=== PATIENT | male | born 1930 | race Caucasian/White ===

== ENCOUNTER 2018-05-31 10:44 | Observation (INO) ==
[2018-05-31 11:07] LABS: Basophils # 0.1 K/mm3 (0-0.2); Basophils % 1.3 % (0.1-2.0); Eosinophils # 0.2 K/mm3 (0.0-0.4); Eosinophils % 3.5 % (0.1-12.0); Hemoglobin 13.3 g/dL (14.1-18.0); Lymphocytes # 2.5 K/mm3 (0.7-4.5); Lymphocytes % 36.3 K/mm3 (10-50); Mean Corpuscular HGB Conc 32.4 g/dL (31.8-35.4); Mean Corpuscular Hemoglobin 30.7 pg (27.0-31.2); Mean Corpuscular Volume 94.7 fl (80-94); Mean Platelet Volume 9.2 fl (7.4-10.4); Monocytes # 0.5 K/mm3 (0.1-1.0); Monocytes % 6.7 % (1.7-9.3); Neutrophils # 3.6 K/mm3 (1.8-7.8); Neutrophils % 52.2 % (37.0-80.0); Platelet Count 158 K/mm3 (142-424); Red Blood Count 4.33 M/mm3 (4.60-6.20); Red Cell Distribution Width 12.9 % (11.5-17.5)
[2018-05-31 11:20] LABS: Anion Gap 13.2 mEq/L (5-15); Blood Urea Nitrogen 36 mg/dL (7-18); Calcium 9.1 mg/dL (8.5-10.1); Carbon Dioxide 24 mmol/L (21.0-32.0); Chloride 112 mmol/L (98-107); Glucose 137 mg/dL (74-106); Potassium 4.2 mmoL/L (3.5-5.1); Sodium 145 mmol/L (136-145)
--- NOTE | 2018-05-31 11:56 | Emergency Department Note ---
ED Disposition Clinical Impression: Atypical chest pain, Acute renal failure (ARF) Chest pain Qualifiers: Chest pain type: unspecified Qualified Code(s): R07.9 - Chest pain, unspecified Disposition: Admitted as Observation Condition on Discharge: Fair - Critical Care Critical Care Time: No Attestation: On 05/31/18, the high probability of a clinically significant, sudden or life threatening deterioration of the following system(s) required my full and direct attention, intervention and personal management. The time I documented below is in addition to time spent performing reported procedures but includes the following listed in this critical care notation. Medical Decision Making - Medical Records Medical records reviewed: Yes: I reviewed the patient's medical records. - [place] Inquiry Pt receiving controlled substance: No Vital Signs: 05/31/18 10:46 05/31/18 11:10 05/31/18 11:15 Temperature 97.9 F Temperature Source Oral Pulse Rate 104 H Pulse Rate [Left Radial] 104 H 85 Respiratory Rate 15 Blood Pressure [Right Arm] 160/88 144/81 Blood Pressure Mean [Right Arm] 112 102 Blood Pressure Source [Right Arm] Automatic Cuff Automatic Cuff Blood Pressure Position [Right Arm] Sitting Supine 02 Sat by Pulse Oximetry 99 99 Oxygen Delivery Method Room Air Room Air 05/31/18 11:22 05/31/18 11:27 05/31/18 13:06 Temperature Temperature Source Pulse Rate Pulse Rate [Left Radial] 85 87 81 Respiratory Rate Blood Pressure [Right Arm] 140/71 111/47 140/74 Blood Pressure Mean [Right Arm] 94 68 96 Blood Pressure Source [Right Arm] Automatic Cuff Blood Pressure Position [Right Arm] Sitting Supine 02 Sat by Pulse Oximetry 98 Oxygen Delivery Method Room Air 05/31/18 14:14 Temperature Temperature Source Pulse Rate Pulse Rate [Left Radial] 82 Respiratory Rate Blood Pressure [Right Arm] 153/98 Blood Pressure Mean [Right Arm] 116 Blood Pressure Source [Right Arm] Automatic Cuff Blood Pressure Position [Right Arm] Sitting 02 Sat by Pulse Oximetry 95 Oxygen Delivery Method Room Air - Lab Data Lab Results 05/31/18 10:55: WBC 7.0, RBC 4.33 L, Hgb 13.3 L, Hct 41.0 L, MCV 94.7 H, MCH 30.7, MCHC 32.4, RDW 12.9, Plt Count 158, MPV 9.2, Neut % (Auto) 52.2, Lymph % (Auto) 36.3, [place] % (Auto) 6.7, Eos % (Auto) 3.5, Baso % (Auto) 1.3, Neut # (Auto) 3.6, Lymph # (Auto) 2.5, [place] # (Auto) 0.5, Eos # (Auto) 0.2, Baso # (Auto) 0.1 05/31/18 10:55: Sodium 145, Potassium 4.2, Chloride 112 H, Carbon Dioxide 24, Anion Gap 13.2, BUN 36 H, Creatinine 2.20 H, Estimated Creat Clear 30, Estimated GFR 29 L, Est GFR ( Amer) 35 L, Glucose 137 H, Calcium 9.1, Troponin I < 0.02 05/31/18 13:54: Troponin I < 0.02 Result diagrams: 05/31/18 10:55 05/31/18 10:55 Orders (Tests/Meds): ED MEDICATIONS Generic Name Dose Route Start Last Admin Trade Name Freq PRN Reason Stop Dose Admin Sodium Chloride 1,000 mls @ 75 mls/hr 05/31/18 14:30 Sod Chlor 0.9% 1000ml Bag IV 06/30/18 14:29 .[id number] LOYDA Discontinued Medications Generic Name Dose Route Start Last Admin Trade Name Freq PRN Reason Stop Dose Admin Nitroglycerin 0.4 mg 05/31/18 11:21 05/31/18 11:24 Nitrostat 0.4mg Sl Tablet SL 05/31/18 11:22 0.4 mg ONCE ONE Administration Nitroglycerin 1 gm 05/31/18 13:06 05/31/18 13:11 Nitroglycerin 1 Inch Oint Udp TD 05/31/18 13:07 1 gm ONCE ONE Administration Chest Pain HPI - General Chief Complaint: Chest Pain Stated Complaint: chest pain Time Seen by Provider: 05/31/18 10:46 Mode of Arrival: Ambulatory Limitations: No Limitations Description of Symptoms (Recalled from ER Triage Doc. 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 hx CABG and pacemaker. cpta asa 325mg - History of Present Illness HPI narrative: Comes to the ED with complain of lower chest pain that started prior to presentation. Describes pain as 4 out of 10, localized to BL lower chest area without any radiation of pain. Pain improved with NTG 0.4 mg SL x1 in ED. Patient denies any other associated complains at this time. MD complaint: chest pain indicative of cardiac Onset (ago): hour(s) Duration: constant Activity at onset: during rest Pain location: other (BL chest) Severity: mild Severity scale (1-10): 4 Quality: tightness, aching Pain radiation: none Relieving factors: nitroglycerin Exacerbating factors: nothing Context: recent illness Risk Factors for CAD: Hypertension (CABG) Treatments prior to or on arrival for Cardiac Chest Pain: aspirin - Related Data Home Medications Medication Instructions Recorded Confirmed amlodipine 5 mg-benazepril 10 mg 1 cap PO DAILY 90 Days cap 10/30/17 05/31/18 capsule aspirin 325 mg tablet,delayed 325 mg PO ONCE 10/30/17 05/31/18 release atorvastatin 20 mg tablet 20 mg PO DAILY 90 Days tab 10/30/17 05/31/18 metoprolol succinate ER 50 mg 50 mg PO DAILY 90 Days 10/30/17 05/31/18 tablet,extended release 24 hr Allergies Allergy/AdvReac Type Severity Reaction Status Date / Time No Known Allergies Allergy Verified 05/31/18 10:55 [facility] History I have reviewed the patient's past medical history: Yes Medical History: Reports:: Hypertension, Internal Pacemaker, Renal Insufficiency Denies:: Aneurysm, Arrhythmia, Asthma, Atrial Fibrillation, Cancer, Chronic Obstructive Pulmonary Disease (COPD), Cerebrovascular Accident, Diabetes Mellitus Type 1, Diabetes Mellitus Type 2, Gastroesophageal Reflux Disease(GERD), Gastrointestinal Bleed, Hyperlipidemia, Myocardial Infarction, Renal Disease Other Medical History: Reports: Cataracts, Chemotherapy. Denies: Arthritis, Hypothyroidism, Thyroid Disease Laterality Cases: Left: Total Hip Replacement, Other Other Surgeries: Yes: Pacemaker, Other (2 heart bypasses, bladder biopsy. lamenectomy) Amputation: No Fractures: No Comment: kidney removed, bladder biopsy, chemo,back surgery - Social History Smoking Status: Former smoker #Yrs smoked (if former smoker): 50 Alcohol Intake: never Alcohol Intake Frequency:: other Substance Use Type: denies use Occupational Status: retired - Psychiatric History Expresses thoughts of harming self/others: None Suicide Plan Description: No Plan Family Hx:: No significant family history ROS Obtained: Yes All systems reviewed & no additional complaints Physical Exam - General General appearance: alert, in no apparent distress - Head Head exam: atraumatic, normocephalic, normal inspection - Eye Eye exam: Present: normal appearance, PERRL, EOMI - ENT ENT exam: Present: normal exam, normal oropharynx, mucous membranes moist, TM's normal bilaterally, normal external ear exam - Neck Neck exam: Present: normal inspection, full ROM, trachea midline. Absent: meningismus, lymphadenopathy - Chest Chest inspection: Present: normal inspection, symmetric chest wall rise. Absent: tenderness - Respiratory Respiratory exam: Present: normal lung sounds bilaterally. Absent: respiratory distress - Cardiovascular Cardiovascular exam: Present: regular rate, normal rhythm. Absent: JVD - Abdominal Exam Abdominal exam: Present: soft, normal bowel sounds. Absent: distention, tenderness, guarding - Extremities Exam Extremities exam: Present: normal inspection, full ROM, normal capillary refill. Absent: calf tenderness - Neurological Exam Neurological exam: Present: alert, oriented X3 - Psychiatric Psychiatric exam: Present: normal affect, normal mood - Lymphatic Lymphatic Findings: no adenopathy
--- NOTE | 2018-05-31 16:26 | Pharmacy Consult Notes ---
[facility] [place] Pharmacy VTE Monitoring - Patient Demographics Admission date: 05/31/18 Report Date: 05/31/18 Time: 16:25 Allergies/Adverse Reactions: Patient Allergies No Known Allergies Allergy (Verified 05/31/18 10:55) Height: 1.8 m Weight: 91.824 kg Patient Problems: Current Active Problems Atypical chest pain (Acute) Chest pain (Acute) Acute renal failure (ARF) (Acute) - VTE Risk Labs: VTE Related Lab Results Hgb 13.3 g/dL (14.1-18.0) L 05/31/18 10:55 Hct 41.0 % (42.0-52.0) L 05/31/18 10:55 Plt Count 158 K/mm3 (142-424) 05/31/18 10:55 BUN 36 mg/dL (7-18) H 05/31/18 10:55 Creatinine 2.20 mg/dL (0.70-1.30) H 05/31/18 10:55 Estimated Creat Clear 30 mL/min (0-300) 05/31/18 10:55 VTE Risk Level: Very Low Risk - Prophylaxis Types of VTE Prophylaxis: TEDS Knee High (JACK HOSE ORDER PLACED)
[2018-06-01 06:33] LABS: Anion Gap 13.7 mEq/L (5-15); Calcium 8.4 mg/dL (8.5-10.1); Potassium 4.7 mmoL/L (3.5-5.1)
[2018-06-01 06:51] LABS: Creatine Kinase 72 U/L (39-308)
--- NOTE | 2018-06-01 08:07 | Progress Note ---
<Marianela Roque - Last Filed: 06/01/18 08:06> Internal Medicine - PN: Subj *Date: 06/01/18 *Time: 08:06 Interval history: Patient states he is feeling well this morning. He has had no further chest pain. He slept off and on and was able to eat this morning. He is anxious to go home. Exam Vital signs and Labs for Last 24 Hours: Temp Pulse Resp BP Pulse Ox 97.2 F L 95 H 20 141/56 98 06/01/18 07:42 06/01/18 07:42 06/01/18 07:42 06/01/18 07:42 06/01/18 07:42 Laboratory Results - last 24 hr 05/31/18 10:55: WBC 7.0, RBC 4.33 L, Hgb 13.3 L, Hct 41.0 L, MCV 94.7 H, MCH 30.7, MCHC 32.4, RDW 12.9, Plt Count 158, MPV 9.2, Neut % (Auto) 52.2, Lymph % (Auto) 36.3, [place] % (Auto) 6.7, Eos % (Auto) 3.5, Baso % (Auto) 1.3, Neut # (Auto) 3.6, Lymph # (Auto) 2.5, [place] # (Auto) 0.5, Eos # (Auto) 0.2, Baso # (Auto) 0.1 05/31/18 10:55: Sodium 145, Potassium 4.2, Chloride 112 H, Carbon Dioxide 24, Anion Gap 13.2, BUN 36 H, Creatinine 2.20 H, Estimated Creat Clear 30, Estimated GFR 29 L, Est GFR ( Amer) 35 L, Glucose 137 H, Calcium 9.1, Troponin I < 0.02 05/31/18 13:54: Troponin I < 0.02 05/31/18 18:21: Troponin I < 0.02 06/01/18 06:10: Total Creatine Kinase 72, CK-MB (CK-2) 1.9, CK-MB (CK-2) Rel Index 2.6, Troponin I < 0.02 06/01/18 06:10: Sodium 144, Potassium 4.7, Chloride 113 H, Carbon Dioxide 22, Anion Gap 13.7, BUN 29 H, Creatinine 1.83 H, Estimated Creat Clear 38, Estimated GFR 35 L, Est GFR ( Amer) 43 L D, Glucose 123 H, Calcium 8.4 L I & O for Last 24 hours: Intake & Output 05/29/18 05/30/18 05/31/18 06/01/18 11:59 11:59 11:59 11:59 Intake Total 1493 / 1493 Balance 1493 / 1493 Weight 195 lb 203 lb - Constitutional no acute distress - *Routine Respiratory Exam Present: CTA bilaterally - *Routine Cardiovascular Exam Present: RRR - *Routine Abdominal Exam Present: soft, normoactive bowel sounds. Absent: tenderness - *Routine Extremities Exam Absent: edema Assessment and Plan (1) Chest pain Current visit: Yes Status: Acute Qualifiers: Chest pain type: unspecified Qualified Code(s): R07.9 - Chest pain, unspecified Category: Medical Code(s): R07.9 - Chest pain, unspecified (2) Coronary artery disease Current visit: Yes Status: Chronic Category: Medical Code(s): I25.10 - Atherosclerotic heart disease of [place] coronary artery without angina pectoris (3) Renal insufficiency Current visit: Yes Status: Chronic Category: Medical Code(s): N28.9 - Disorder of kidney and ureter, unspecified (4) History of coronary artery bypass graft x 2 Current visit: Yes Status: Chronic Category: Surgical Code(s): Z95.1 - Presence of aortocoronary bypass graft (5) Hypertension Current visit: Yes Status: Chronic Category: Medical Code(s): I10 - Essential (primary) hypertension (6) Solitary kidney Current visit: Yes Status: Chronic Category: Medical Code(s): 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, unilateral (7) Presence of permanent cardiac pacemaker Current visit: Yes Status: Acute Category: Medical Code(s): Z95.0 - Presence of cardiac pacemaker (8) Peripheral arterial disease Current visit: Yes Status: Acute Category: Medical Code(s): I73.9 - Peripheral vascular disease, unspecified (9) Lower extremity neuropathy Current visit: Yes Status: Acute Category: Medical Code(s): G57.90 - Unspecified mononeuropathy of unspecified lower limb (10) Acute on chronic renal insufficiency Current visit: Yes Status: Acute Category: Medical Code(s): N28.9 - Disorder of kidney and ureter, unspecified; N18.9 - Chronic kidney disease, unspecified - Assessment and plan all Dx Assessment and Plan for all problems:: All cardiac enzymes have been normal. Patient can possibly be discharged today with an outpatient stress test and follow-up with his pickling operator. <LiyahNader Justin - Last Filed: 06/01/18 12:56> Exam Vital signs and Labs for Last 24 Hours: Temp Pulse Resp BP Pulse Ox 97.5 F L 43 L 16 126/69 95 06/01/18 11:11 06/01/18 11:11 06/01/18 11:11 06/01/18 11:11 06/01/18 11:11 Laboratory Results - last 24 hr 05/31/18 13:54: Troponin I < 0.02 05/31/18 18:21: Troponin I < 0.02 06/01/18 06:10: Total Creatine Kinase 72, CK-MB (CK-2) 1.9, CK-MB (CK-2) Rel Index 2.6, Troponin I < 0.02 06/01/18 06:10: Sodium 144, Potassium 4.7, Chloride 113 H, Carbon Dioxide 22, Anion Gap 13.7, BUN 29 H, Creatinine 1.83 H, Estimated Creat Clear 38, Estimated GFR 35 L, Est GFR ( Amer) 43 L D, Glucose 123 H, Calcium 8.4 L I & O for Last 24 hours: Intake & Output 05/30/18 05/31/18 06/01/18 06/02/18 11:59 11:59 11:59 11:59 Intake Total 1493 / 1493 Balance 1493 / 1493 Weight 195 lb 203 lb Assessment and Plan (1) Chest pain Current visit: Yes Status: Acute Qualifiers: Chest pain type: unspecified Qualified Code(s): R07.9 - Chest pain, unspecified Category: Medical Code(s): R07.9 - Chest pain, unspecified (2) Coronary artery disease Current visit: Yes Status: Chronic Category: Medical Code(s): I25.10 - Atherosclerotic heart disease of [place] coronary artery without angina pectoris (3) Renal insufficiency Current visit: Yes Status: Chronic Category: Medical Code(s): N28.9 - Disorder of kidney and ureter, unspecified (4) History of coronary artery bypass graft x 2 Current visit: Yes Status: Chronic Category: Surgical Code(s): Z95.1 - Presence of aortocoronary bypass graft (5) Hypertension Current visit: Yes Status: Chronic Category: Medical Code(s): I10 - Essential (primary) hypertension (6) Solitary kidney Current visit: Yes Status: Chronic Category: Medical Code(s): 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, unilateral (7) Presence of permanent cardiac pacemaker Current visit: Yes Status: Acute Category: Medical Code(s): Z95.0 - Presence of cardiac pacemaker (8) Peripheral arterial disease Current visit: Yes Status: Acute Category: Medical Code(s): I73.9 - Peripheral vascular disease, unspecified (9) Lower extremity neuropathy Current visit: Yes Status: Acute Category: Medical Code(s): G57.90 - Unspecified mononeuropathy of unspecified lower limb (10) Acute on chronic renal insufficiency Current visit: Yes Status: Acute Category: Medical Code(s): N28.9 - Disorder of kidney and ureter, unspecified; N18.9 - Chronic kidney disease, unspecified (11) Cardiomegaly Current visit: Yes Status: Acute Category: Medical Code(s): I51.7 - Cardiomegaly - Assessment and plan all Dx Assessment and Plan for all problems:: Patient seen and examined. Will obtain echo this AM and if satisfactory, will discharge home and arrange outpt f/u with his pickling operator, Dr. Bravo.
--- NOTE | 2018-06-01 08:22 | History & Physical Report ---
*Admission Date: 05/31/18 <Marianela Roque 05/31/18 17:15> *Chief complaint: chest pain <Marianela Roque 05/31/18 17:15> *History of present illness: Mr. Child is an 88yo male patient who began having midsternal CP around 10am this am. He states he had a BM and then sat down on the couch. The pain continued to worsen, so he had his drive him to the ER. He had no other associated symptoms. He was given nitro and his pain resolved and has not returned. He was admitted overnight for serial enzymes and monitoring. He does have a hx of CAD with CABG. His fire sprinkler apparatus inspector is Dr. Bravo. So far his cardiac enzymes have been normal. <Keagan Roquea 05/31/18 17:15> [facility] History Medical History: Reports:: Cancer (LINING OF THE BLADDER), Coronary Artery Disease, Hypertension, Internal Pacemaker, Renal Insufficiency Denies:: Aneurysm, Arrhythmia, Asthma, Atrial Fibrillation, Chronic Obstructive Pulmonary Disease (COPD), Cerebrovascular Accident, Diabetes Mellitus Type 1, Diabetes Mellitus Type 2, Gastroesophageal Reflux Disease(GERD), Gastrointestinal Bleed, Hyperlipidemia, MRSA, Myocardial Infarction, Renal Disease <RickomerMarianela 05/31/18 17:15> Other Medical History: Reports: Cataracts, Chemotherapy. Denies: Arthritis, Hypothyroidism, Thyroid Disease <RickomerMarianela 05/31/18 17:15> Laterality Cases: Left: Total Hip Replacement, Other, Bilateral: Cataract, Tonsillectomy <JudeMarianela 05/31/18 17:15> Other Surgeries: Yes: CABG, Pacemaker, Other (2 heart bypasses, bladder biopsy. laminectomy, nephrectomy left) <JudeMarianela 05/31/18 17:15> Amputation: No <JudeMarianela 05/31/18 17:15> Fractures: No <JudeMarianela 05/31/18 17:15> - *Social History Educational Level: Completed College <JudeMarianela 05/31/18 17:15> Smoking Status: Never smoker <Marianela Roque 05/31/18 17:15> #Yrs smoked (if former smoker): 50 <Marianela Roque 05/31/18 17:15> Alcohol Intake: never <Keagan Roquea 05/31/18 17:15> Alcohol Intake Frequency:: other [facility] 05/[facility]> Substance Use Type: denies use <[facility] 05/31/18 17:15> Occupational Status: retired <Keagan Roquea 05/31/18 17:15> Housing: [facility] 05/[facility] 17:15> Household Members: spouse <JudeMarianela 05/31/18 17:15> - Psychiatric History Expresses thoughts of harming self/others: None <JudeMarianela 05/31/18 17:15> Suicide Plan Description: No Plan <JudeMarianela 05/31/18 17:15> *Family Hx:: Stroke [facility] 05/31/[facility] 17:15> Review of Systems - Constitutional Denies headache(s), Denies weakness <[facility] 05/31/[facility] 17:15> - Eyes Denies blurry vision, Denies double vision <[facility] 05/31/18 17:15> - ENT Denies nasal congestion, Denies sore throat <[facility] 05/31/18 17:15> - *Cardiovascular Reports chest pain (now resolved), Denies irregular heart rhythm <[facility]omer [facility] 05/31/18 17:15> - *Respiratory Denies cough, Denies shortness of breath <[facility] 05/31/18 17:15> - *Gastrointestinal Reports loose stools, Denies abdominal pain, Denies nausea, Denies vomiting <[facility] 05/31/18 17:15> - *Genitourinary Denies difficulty urinating, Denies painful urination <[facility] 05/31/18 17:15> - *Musculoskeletal Denies joint pain [facility] 05/[facility] 17:15> - *Neurologic Denies headache(s), Denies dizziness, Denies weakness <[facility] 05/31/18 17:15> Meds Home Medications Medication Instructions Recorded Confirmed Type amlodipine 5 mg-benazepril 10 mg 1 cap PO DAILY 90 Days cap 10/30/17 05/31/18 History capsule aspirin 325 mg tablet,delayed 325 mg PO DAILY 10/30/17 05/31/18 History release atorvastatin 20 mg tablet 20 mg PO DAILY 90 Days tab 10/30/17 05/31/18 History metoprolol succinate ER 50 mg 50 mg PO DAILY 90 Days 10/30/17 05/31/18 History tablet,extended release 24 hr <Nader Pelletier - 05/31/18 17:59> Allergies Allergy/AdvReac Type Severity Reaction Status Date / Time No Known Allergies Allergy Verified 05/31/18 10:55 <Nader Pelletier - 05/31/18 17:59> Exam Vital signs and Labs for Last 24 Hours: Temp Pulse Resp BP Pulse Ox 97.2 F L 80 18 143/67 97 05/31/18 15:12 05/31/18 16:00 05/31/18 15:12 05/31/18 15:12 05/31/18 15:27 Laboratory Results - last 24 hr 05/31/18 10:55: WBC 7.0, RBC 4.33 L, Hgb 13.3 L, Hct 41.0 L, MCV 94.7 H, MCH 30.7, MCHC 32.4, RDW 12.9, Plt Count 158, MPV 9.2, Neut % (Auto) 52.2, Lymph % (Auto) 36.3, [place] % (Auto) 6.7, Eos % (Auto) 3.5, Baso % (Auto) 1.3, Neut # (Auto) 3.6, Lymph # (Auto) 2.5, [place] # (Auto) 0.5, Eos # (Auto) 0.2, Baso # (Auto) 0.1 05/31/18 10:55: Sodium 145, Potassium 4.2, Chloride 112 H, Carbon Dioxide 24, Anion Gap 13.2, BUN 36 H, Creatinine 2.20 H, Estimated Creat Clear 30, Estimated GFR 29 L, Est GFR ( Amer) 35 L, Glucose 137 H, Calcium 9.1, Troponin I < 0.02 05/31/18 13:54: Troponin I < 0.02 <Nader Pelletier - 05/31/18 17:59> Temp Pulse Resp BP Pulse Ox 97.2 F L 83 18 143/67 97 05/31/18 15:12 05/31/18 15:12 05/31/18 15:12 05/31/18 15:12 05/31/18 15:27 Laboratory Results - last 24 hr 05/31/18 10:55: WBC 7.0, RBC 4.33 L, Hgb 13.3 L, Hct 41.0 L, MCV 94.7 H, MCH 30.7, MCHC 32.4, RDW 12.9, Plt Count 158, MPV 9.2, Neut % (Auto) 52.2, Lymph % (Auto) 36.3, [place] % (Auto) 6.7, Eos % (Auto) 3.5, Baso % (Auto) 1.3, Neut # (A uto) 3.6, Lymph # (Auto) 2.5, [place] # (Auto) 0.5, Eos # (Auto) 0.2, Baso # (Auto) 0.1 05/31/18 10:55: Sodium 145, Potassium 4.2, Chloride 112 H, Carbon Dioxide 24, Anion Gap 13.2, BUN 36 H, Creatinine 2.20 H, Estimated Creat Clear 30, Estimated GFR 29 L, Est GFR ( Amer) 35 L, Glucose 137 H, Calcium 9.1, Troponin I < 0.02 05/31/18 13:54: Troponin I < 0.02 <Marianela Roque - 05/31/18 17:15> I & O for Last 24 hours: Intake & Output 05/29/18 05/30/18 05/31/18 06/01/18 11:59 11:59 11:59 11:59 Intake Total 240 / 240 Balance 240 / 240 Weight 195 lb 202 lb 7 oz <LiyahNader villagran Nhan - 05/31/18 17:59> Intake & Output 05/29/18 05/30/18 05/31/18 06/01/18 11:59 11:59 11:59 11:59 Weight 195 lb 202 lb 7 oz <Marianela Roque - 05/31/18 17:15> - Constitutional no acute distress <Marianela Roque - 05/31/18 17:15> - *Routine HEENT Exam Head: Present: normocephalic, atraumatic <Marianela Roque 05/31/18 17:15> Eye: Present: EOMI, PERRL <Marianela Roque 05/31/18 17:15> ENT: Present: mucous membranes moist <Marianela Roque 05/31/18 17:15> - *Routine Neck Exam Present: supple <Marianela Roque 05/31/18 17:15> - *Routine Respiratory Exam Present: CTA bilaterally <Marianela Roque 05/31/18 17:15> - *Routine Cardiovascular Exam Present: RRR <Keagan Roquea 05/31/18 17:15> - *Routine Abdominal Exam Present: soft, normoactive bowel sounds. Absent: tenderness <[facility] 05/31/18 17:15> - *Routine Extremities Exam Absent: edema <[facility] 05/31/18 17:15> - *Routine Skin Exam Present: intact <[facility] 05/31/18 17:15> - *Routine Neurological Exam Present: alert, oriented X3 <Marianela Roque 05/31/18 17:15> H&P: Result - Impressions CXR - Prior CABG with cardiac pacemaker and mild cardiomegaly <Keagan Roquea 05/31/18 17:15> Assessment and Plan (1) Chest pain Current visit: Yes Status: Acute Qualifiers: Chest pain type: unspecified Qualified Code(s): R07.9 - Chest pain, unspecified Category: Medical Code(s): R07.9 - Chest pain, unspecified (2) Coronary artery disease Current visit: Yes Status: Chronic Category: Medical Code(s): I25.10 - Atherosclerotic heart disease of [place] coronary artery without angina pectoris (3) Renal insufficiency Current visit: Yes Status: Chronic Category: Medical Code(s): N28.9 - Disorder of kidney and ureter, unspecified (4) History of coronary artery bypass graft x 2 Current visit: Yes Status: Chronic Category: Surgical Code(s): Z95.1 - Presence of aortocoronary bypass graft (5) Hypertension Current visit: Yes Status: Chronic Category: Medical Code(s): I10 - Essential (primary) hypertension (6) Solitary kidney Current visit: Yes Status: Chronic Category: Medical Code(s): 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, unilateral <Marianela Roque - 05/31/18 16:12> (1) Chest pain Current visit: Yes Status: Acute Qualifiers: Chest pain type: unspecified Qualified Code(s): R07.9 - Chest pain, unspecified Category: Medical Code(s): R07.9 - Chest pain, unspecified (2) Coronary artery disease Current visit: Yes Status: Chronic Category: Medical Code(s): I25.10 - Atherosclerotic heart disease of [place] coronary artery without angina pectoris (3) Renal insufficiency Current visit: Yes Status: Chronic Category: Medical Code(s): N28.9 - Disorder of kidney and ureter, unspecified (4) History of coronary artery bypass graft x 2 Current visit: Yes Status: Chronic Category: Surgical Code(s): Z95.1 - Presence of aortocoronary bypass graft (5) Hypertension Current visit: Yes Status: Chronic Category: Medical Code(s): I10 - Essential (primary) hypertension (6) Solitary kidney Current visit: Yes Status: Chronic Category: Medical Code(s): 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, unilateral (7) Presence of permanent cardiac pacemaker Current visit: Yes Status: Acute Category: Medical Code(s): Z95.0 - Presence of cardiac pacemaker (8) Peripheral arterial disease Current visit: Yes Status: Acute Category: Medical Code(s): I73.9 - Peripheral vascular disease, unspecified (9) Lower extremity neuropathy Current visit: Yes Status: Acute Category: Medical Code(s): G57.90 - Unspecified mononeuropathy of unspecified lower limb (10) Acute on chronic renal insufficiency Current visit: Yes Status: Acute Category: Medical Code(s): N28.9 - Disorder of kidney and ureter, unspecified; N18.9 - Chronic kidney disease, unspecified <Nader Pelletier Nhan - 05/31/18 17:59> - Assessment and plan all Dx Assessment and Plan for all problems:: Patient seen and examined. Concur with history as recorded above. He has had no further chest pain since admission. Of note, 2 days ago he just finshed a 30 day prescription for Lasix due to peripheral edema. His edema has since resolved but this may account for his elevated creatinine today as his creatinine was 1.3 and GFR 54 prior to starting the Lasisx. Nontheless, he has finished this prescription. His CXR shows mild cardiomegaly. Will r/o acute MS with serial enzymes and will repeat renal function in AM after gentle hydration. Will also check echocardiogram. <Nader Pelletier - 05/31/18 17:59> Patient's cardiac enzymes have been normal. Will repeat them in the am. If normal, he can likely be discharged with an outpatient stress test and f/u with Dr. Bravo. <Marianela Roque - 05/31/18 17:15>
--- NOTE | 2018-06-01 13:07 | Cardiology Report ---
PROCEDURE: 2-D M-mode and color Doppler study INDICATIONS FOR THE TEST: Chest pain+ COPD Heart Murmur Tobacco Smoking Palpitations Fatigue Syncope Edema+ Hypertension+Diabetes Mellitus Rheumatic Fever SOB NICOLE Obesity Hyperlipidemia Family History HD Additional History CARDIOMEGALY, PACER, CABG 14 YRS AGO PATIENT INFORMATION HEIGHT: 71 WEIGHT:203 GENDER: Male B/P:141/56 2-D/M-MODE INTERPRETATION: 2-D MEASUREMENTS OBSERVED VALUES IN CMS Right Ventricular Dimension (RVDd) 2.4 Interventricular Septum (Thickness)(IVsd) 1.4 Left Ventricular Internal Dimensions(LVIDd) 4.4 Left Ventricular Posterior Wall (Thickness)(LVPWd) 1.4 Aortic Root 2.7 Aortic Cusp Separation 1.8 Left Atrial Dimensions (LAD) 4.1 2D 1. Left atrium is mildly enlarged, left ventricle is normal size, there is mild concentric left ventricular hypertrophy, visually estimated ejection fraction 50% with no obvious regional wall motion abnormality. There is abnormal septal motion. 2. The right atrium and right ventricle are qualitatively mildly enlarged with normal contractility. There is a pacemaker lead seen in the right atrium and right ventricle. 3. The aortic valve is thickened and calcified leaflet continue to display mobility. 4. The mitral valve has mitral calcification, leaflets are minimally thickened. 5. The tricuspid valve is grossly normal. 6. The pulmonic valve is poorly visualized. 7. No significant pericardial effusion noted. DOPPLER INTERROGATION: Doppler interrogation of the aortic, mitral and tricuspid valvular presence of mild mitral and moderate tricuspid regurgitation, calculated right ventricular systolic pressure is 46 mmHg consistent with moderate pulmonary hypertension, grade 1 diastolic dysfunction seen with tissue Doppler evidence of raised left atrial pressure. CONCLUSION: 1. Mildly enlarged left atrium, normal left ventricular size, mild concentric left ventricular hypertrophy, visually estimated ejection fraction approximately 50%, there is abnormal septal motion, grade 1 diastolic dysfunction seen with tissue Doppler evidence of raised left atrial pressure. 2. Mild mitral and moderate tricuspid regurgitation, calculated right ventricular systolic pressure is 46 mmHg consistent with moderate pulmonary hypertension. No significant pericardial effusion noted.
--- NOTE | 2018-06-01 13:25 | Discharge Summary ---
General - General Admission date:: 05/31/18 <Nader Pelletier - 06/04/18 07:59> 05/31/18 <RickMarianela tello - 06/01/18 13:25> Discharge date: 06/01/18 <Marianela Roque - 06/01/18 13:25> HPI HPI: Mr. Child is an 88yo male patient who began having midsternal CP around 10am this am. He states he had a BM and then sat down on the couch. The pain continued to worsen, so he had his drive him to the ER. He had no other associated symptoms. He was given nitro and his pain resolved and has not returned. He was admitted overnight for serial enzymes and monitoring. He does have a hx of CAD with CABG. His automotive tire tester is Dr. Bravo. So far his cardiac enzymes have been normal. <JudeMarianela - 06/01/18 13:25> Hospital Course Hospital Course: The patient's CXR showed prior CABG with cardiac pacemaker and mild cardiomegaly. His CP resolved with nitroglycerin and never returned. His cardiac enzymes were all normal. He had an echo showing an EF of 50%. He was stable to be discharged home and will need a f/u with his Surgical Clinical Reviewer, Dr. Bravo. <uJdeMarianela - 06/01/18 13:25> Objective Vital signs: Temp Pulse Resp BP Pulse Ox 97.5 F L 80 16 126/69 95 06/01/18 11:11 06/01/18 12:00 06/01/18 11:11 06/01/18 11:11 06/01/18 11:11 <Nader Pelletier - 06/04/18 07:59> Temp Pulse Resp BP Pulse Ox 97.5 F L 43 L 16 126/69 95 06/01/18 11:11 06/01/18 11:11 06/01/18 11:11 06/01/18 11:11 06/01/18 11:11 <RickMarianela tello - 06/01/18 13:25> Narrative: - Constitutional no acute distress - *Routine HEENT Exam Head: Present: normocephalic, atraumatic Eye: Present: EOMI, PERRL ENT: Present: mucous membranes moist - *Routine Neck Exam Present: supple - *Routine Respiratory Exam Present: CTA bilaterally - *Routine Cardiovascular Exam Present: RRR - *Routine Abdominal Exam Present: soft, normoactive bowel sounds. Absent: tenderness - *Routine Extremities Exam Absent: edema - *Routine Skin Exam Present: intact - *Routine Neurological Exam Present: alert, oriented X3 <Marianela Roque - 06/01/18 13:25> Results Labs on day of discharge: Labs from last 24 hours 06/01/18 06/01/18 05/31/18 06:10 06:10 18:21 Sodium 144 Potassium 4.7 Chloride 113 H Carbon Dioxide 22 Anion Gap 13.7 BUN 29 H Creatinine 1.83 H Estimated Creat Clear 38 Estimated GFR 35 L Est GFR ( Amer) 43 L D Glucose 123 H Calcium 8.4 L Total Creatine Kinase 72 CK-MB (CK-2) 1.9 CK-MB (CK-2) Rel Index 2.6 Troponin I < 0.02 < 0.02 05/31/18 13:54 Sodium Potassium Chloride Carbon Dioxide Anion Gap BUN Creatinine Estimated Creat Clear Estimated GFR Est GFR ( Amer) Glucose Calcium Total Creatine Kinase CK-MB (CK-2) CK-MB (CK-2) Rel Index Troponin I < 0.02 <Marianela Roque - 06/01/18 13:25> DS: Diagnosis - Discharge Diagnosis (1) Chest pain Status: Acute (2) Coronary artery disease Status: Chronic (3) Renal insufficiency Status: Chronic (4) History of coronary artery bypass graft x 2 Status: Chronic (5) Hypertension Status: Chronic (6) Solitary kidney Status: Chronic (7) Presence of permanent cardiac pacemaker Status: Acute (8) Peripheral arterial disease Status: Acute (9) Lower extremity neuropathy Status: Acute (10) Acute on chronic renal insufficiency Status: Acute (11) Cardiomegaly Status: Acute <Marianela Roque - 06/01/18 13:21> (1) Chest pain Status: Acute (2) Coronary artery disease Status: Chronic (3) Renal insufficiency Status: Chronic (4) History of coronary artery bypass graft x 2 Status: Chronic (5) Hypertension Status: Chronic (6) Solitary kidney Status: Chronic (7) Presence of permanent cardiac pacemaker Status: Acute (8) Peripheral arterial disease Status: Acute (9) Lower extremity neuropathy Status: Acute (10) Acute on chronic renal insufficiency Status: Acute (11) Cardiomegaly Status: Acute <Nader Pelletier - 06/04/18 07:59> Discharge Plan - Patient Discharge Instructions ACTIVITY: Continue current activity <Marianela Roque - 06/01/18 13:25> DIET: continue same diet <Marianela Roque - 06/01/18 13:25> Patient Instructions: <Nader Pelletier - 06/04/18 07:59> Forms: <Nader Pelletier - 06/04/18 07:59> - Follow up Plan Follow up with: Harvey Bravo [Referring] - (Dr. Pelletier will arrange appt.) <Nader Pelletier - 06/04/18 07:59> Disposition: Home, Self-Care <LiyahNader mckenzie - 06/04/18 07:59> Home Medications: Home Medications Medication Instructions Recorded Confirmed Type amlodipine 5 mg-benazepril 10 mg 1 cap PO DAILY 90 Days cap 10/30/17 05/31/18 History capsule aspirin 325 mg tablet,delayed 325 mg PO DAILY 10/30/17 05/31/18 History release atorvastatin 20 mg tablet 20 mg PO DAILY 90 Days tab 10/30/17 05/31/18 History metoprolol succinate ER 50 mg 50 mg PO DAILY 90 Days 10/30/17 05/31/18 History tablet,extended release 24 hr RX: Furosemide [Furosemide 40MG 40 mg PO DAILY 06/01/18 06/01/18 History tAB] RX: Potassium Chloride [Micro-K 10 meq PO DAILY 06/01/18 06/01/18 History 10mEq cap] <LiyahNader mckenzie - 06/04/18 07:59> Prescriptions/Medication Reconciliation: New RX: Nitroglycerin 0.4 mg SL Q5MINP PRN #25 tab.subl PRN Reason: Chest Pain Continue metoprolol succinate ER 50 mg tablet,extended release 24 hr 50 mg PO DAILY 90 Days aspirin 325 mg tablet,delayed release 325 mg PO DAILY amlodipine 5 mg-benazepril 10 mg capsule 1 cap PO DAILY 90 Days cap atorvastatin 20 mg tablet 20 mg PO DAILY 90 Days tab RX: Furosemide [Furosemide 40MG tAB] 40 mg PO DAILY RX: Potassium Chloride [Micro-K 10mEq cap] 10 meq PO DAILY <Nader Pelletier - 06/04/18 07:59> - Additional Information Additional Information: Concur with plan for discharge as outlined above. He will be following up with his automotive tire tester for consideration of a stress test . <Nader Pelletier - 06/04/18 07:59>
== END 2018-06-01 13:50 | disposition home or self-care (01) ==
LOC: 2ND 10:44 → ER 10:44 → 2ND 14:59
PROVIDERS: ADMIT Family Medicine; ATTEND Family Medicine